=== PATIENT | male | born 1975 | race Caucasian/White ===

== ENCOUNTER 2017-07-27 13:49 | Emergency (ER) | payer MEDICARE, MEDICAID ==
--- NOTE | 2017-07-27 14:14 | UC ---
Throat Pain/Nasal Fer HPI - HPI Summary HPI Summary: Pt presents with fatigue, body aches, sinus pain/pressure/congestion, and dry cough for the last 3 days. He has been taking tylenol and mucinex with no relief. Denies fever, chills, sore throat, SOB, chest pain, abdominal pain, n/v/ d/c. - History of Current Complaint Chief Complaint: UCRespiratory Stated Complaint: CONGESTION Time Seen by Provider: 07/27/17 14:13 Hx Obtained From: Patient Onset/Duration: Gradual Onset Severity: Mild Pain Intensity: 3 Pain Scale Used: 0-10 Numeric - Allergies/Home Medications Allergies/Adverse Reactions: Allergies Allergy/AdvReac Type Severity Reaction Status Date / Time Penicillins Allergy Unknown Verified 07/27/17 14:07 Reaction Details Home Medications: Home Medications Albuterol HFA INHALER* [Ventolin HFA Inhaler*] 1 puff TID PRN 07/27/17 [History Confirmed 07/27/17] Aspirin EC TAB* [Ecotrin EC Low Dose 81 MG*] 1 tab DAILY 07/27/17 [History Confirmed 07/27/17] Atorvastatin* [Lipitor*] 80 mg PO DAILY 07/27/17 [History Confirmed 07/27/17] Gabapentin CAP(*) [Neurontin 300 CAP(*)] 300 mg PO QID 07/27/17 [History Confirmed 07/27/17] Iron 65 mg DAILY 07/27/17 [History Confirmed 07/27/17] Levothyroxine TAB* [Synthroid TAB*] 200 mcg PO DAILY 07/27/17 [History Confirmed 07/27/17] Omeprazole CAP* [Prilosec CAP* 20 MG] 1 tab DAILY 07/27/17 [History Confirmed ] PMH/Surg Hx/FS Hx/Imm Hx Endocrine History: Hypothyroidism Cardiovascular History: Cardiac Disease, Hypertension Respiratory History: Asthma Neurological History: CVA - Surgical History Surgical History: Yes Surgery Procedure, Year, and Place: cardiac stent 08/12/12. appy. L ear skin graft. gangrene of the scrotal area. T&A gastric bypass - Family History Known Family History: Positive: None, Hypertension, Diabetes - Social History Lives: With Family Alcohol Use: None Substance Use Type: None Smoking Status (MU): Former Smoker Type: Cigarettes Amount Used/How Often: 1/2 ppd Length of Time of Smoking/Using Tobacco: 36 yrs Have You Smoked in the Last Year: Yes When Did the Patient Quit Smoking/Using Tobacco: 2013 Household Exposure Type: Cigarettes - Immunization History Most Recent Influenza Vaccination: no Review of Systems Constitutional: Other - Body aches Skin: Negative Eyes: Negative ENT: Nasal Discharge, Sinus Congestion, Sinus Pain/Tenderness Respiratory: Cough Cardiovascular: Negative Gastrointestinal: Negative Neurovascular: Negative Musculoskeletal: Negative Neurological: Negative Psychological: Negative All Other Systems Reviewed And Are Negative: Yes Physical Exam - Summary Physical Exam Summary: GENERAL: Mildly ill appearing. NAD. SKIN: No rashes, sores, ulcers, masses, lesions. HEENT: Head: AT/NC Eyes: EOM intact. Conjunctiva clear without inflammation or discharge. Ears: Hearing grossly normal. TMs intact, no bulging, erythema, or edema. Nose: Nasal mucosa pink and moist. TTP maxillary and frontal sinus. Throat: Posterior oropharynx without exudates, erythema, or tonsillar enlargement. Uvula midline. NECK: Supple. Nontender. No lymphadenopathy. CHEST: CTAB. No r/r/w. No accessory muscle use. Breathing comfortably and in no distress. CV: Pulses intact. Brisk cap refill. NEURO: Alert. CN II-XII grossly intact. PSYCH: Age appropriate behavior. Triage Information Reviewed: Yes Throat Pain/Nasal Course/Dx - Course Course Of Treatment: POC flu negative. Sinusitis - Differential Dx/Diagnosis Provider Diagnoses: Sinusitis Discharge - Sign-Out/Discharge Documenting (check all that apply): Discharge - Discharge Plan Condition: Stable Disposition: HOME Prescriptions: Azithromycin TAB* [Zithromax TAB (Z-GOLD) 250 mg #6 tabs] 2 tab PO .TODAY, THEN 1 DAILY #1 gold Patient Education Materials: Sinusitis (ED) Forms: *Work Release Referrals: Ole Daly DO [Primary Care Provider] - Additional Instructions: If you develop a fever, shortness of breath, chest pain, new or worsening symptoms - please call your PCP or go to the ED. Your blood pressure was high at todays visit. Please see your primary provider within 4 weeks for recheck and re-evaluation. - Billing Disposition and Condition Condition: STABLE Disposition: HOME
[2017-07-27 14:15] VITALS: BP 144/88
== END 2017-07-27 14:48 | disposition home or self-care (01) ==
LOC: UCCORT 13:49
DX: J32.9 Chronic sinusitis, unspecified (principal); Z88.0 Allergy status to penicillin; E03.9 Hypothyroidism, unspecified; Z86.73 Personal history of transient ischemic attack (TIA), and cerebral infarction without residual deficits; Z87.891 Personal history of nicotine dependence
CPT/HCPCS: 87502; 99212; G0463

== ENCOUNTER 2017-09-30 17:30 | Emergency (ER) | payer MEDICARE, MEDICAID ==
[2017-09-30 18:30] VITALS: BP 143/98
[2017-09-30] MEDS ORDERED: Ketorolac INJ* 30 MG/ML 1 ML VIAL IM ONE (19:13)
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
== END 2017-09-30 19:43 | disposition home or self-care (01) ==
LOC: UCCORT 17:30
DX: M54.5 Low back pain (principal); M54.16 Radiculopathy, lumbar region
CPT/HCPCS: 96372; 99212; G0463; J1885

== ENCOUNTER 2017-12-07 19:50 | Emergency (ER) | payer MEDICARE, MEDICAID ==
[2017-12-07 20:02] VITALS: BP 133/96
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
== END 2017-12-07 20:38 | disposition home or self-care (01) ==
LOC: UCCORT 19:50
DX: R51 Headache (principal); F17.210 Nicotine dependence, cigarettes, uncomplicated; Z88.0 Allergy status to penicillin; R22.0 Localized swelling, mass and lump, head
CPT/HCPCS: 99212; G0463

== ENCOUNTER 2018-02-11 19:35 | Emergency (ER) | payer MEDICARE, MEDICAID ==
[2018-02-11 20:21] VITALS: BP 136/88
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
[2018-02-11] MEDS ORDERED: Albuterol 2.5 MG/3 ML NEB.SOL* (0.083%) INH ONE (20:53)
[2018-02-11] MEDS ORDERED: Ipratropium 0.5MG/2.5ML NEB* 0.5 MG/2.5 ML NEB.SOLN INH ONE (20:53)
[2018-02-11] MEDS ORDERED: DOXYcycline CAP(*) 100 MG PO ONE (21:27)
[2018-02-11] MEDS ORDERED: Albuterol HFA INHALER* 8 gm MDI INH ONE (21:29)
[2018-02-11] MEDS ORDERED: predniSONE TAB* 20 MG PO ONE (21:29)
--- NOTE | 2018-02-12 08:08 | RAD ---
HISTORY: cough/right sided wheezing COMPARISONS: December 05, 2013 VIEWS: 4: Frontal dual-energy and lateral views of the chest. FINDINGS: CARDIOMEDIASTINAL SILHOUETTE: The cardiomediastinal silhouette is normal. ALEX: The alex are normal. PLEURA: The costophrenic angles are sharp. No pleural abnormalities are noted. LUNG PARENCHYMA: The lungs are clear. ABDOMEN: The upper abdomen is clear. There is no subphrenic gas. BONES AND SOFT TISSUES: No bone or soft tissue abnormalities are noted. OTHER: None. IMPRESSION: NO ACTIVE CARDIOPULMONARY DISEASE. R0
--- NOTE | 2018-02-12 08:19 | UC ---
- Progress Note Progress Note: Patient Name: RICHA CUI Medical Record#: [id number] Ordering Physician: Brayden Bonds MD Acct.#: [id number] : 1975 Age: 42 Sex: M Location: [facility] Exam Date: 02/11/182033 ADM Status: DEP ER Order Information: CHEST PA & LAT 2 VWS Accession Number: [id number] CPT: 60364 HISTORY: cough/right sided wheezing COMPARISONS: December 05, 2013 VIEWS: 4: Frontal dual-energy and lateral views of the chest. FINDINGS: CARDIOMEDIASTINAL SILHOUETTE: The cardiomediastinal silhouette is normal. JAMES: The james are normal. PLEURA: The costophrenic angles are sharp. No pleural abnormalities are noted. LUNG PARENCHYMA: The lungs are clear. ABDOMEN: The upper abdomen is clear. There is no subphrenic gas. BONES AND SOFT TISSUES: No bone or soft tissue abnormalities are noted. OTHER: None. IMPRESSION: NO ACTIVE CARDIOPULMONARY DISEASE. R0 <Electronically signed by Jeff Murphy MD in OV> 02/12/18804 Dictated By: Jeff Murphy MD Dictated Date/Time: 02/12/18804 Transcribed Date/Time: 02/12/18803 Copy to: CC:Brayden Bonds MD; Ole Daly DO Imaging [facility] Imaging [facility] [address] [address] ph ([phone]) ph ([phone]) ph ([phone]) This report is only to be considered final once signed by the Provider(s) as displayed in the "<Electronically Signed by >" field (s). Absence of a signature indicates the report is in a draft status and still needs to be finalized. In the event this document was created by someone other than the signing Provider, the individual initiating the document will be listed in the "Entered by:" or "Dictated by:" carroll. 1 of 1 Re-Evaluation - Re-Evaluation First Eval Re-Evaluation Time: 21:31 Change: Improved - better after neb, wheezes gone Discharge - Sign-Out/Discharge Documenting (check all that apply): Post-Discharge Follow Up All imaging exams completed and their final reports reviewed: Yes - Discharge Plan Condition: Stable Disposition: HOME Prescriptions: DOXYcycline CAP(*) [DOXYcycline 100MG CAP(*)] 100 mg PO BID #12 cap predniSONE [Deltasone 20 MG TAB] 40 mg PO DAILY #10 tab Patient Education Materials: Acute Bronchitis (ED) Forms: *Work Release Referrals: Ole Daly DO [Primary Care Provider] - 2 Days Additional Instructions: The official XR report is pending Don't take your iron the same time you take your doxy. Take at least 2 hours before or 2 hour after the doxy. TO ER FOR WORSENING SYMPTOMS OR CHEST PAIN OR HIGH FEVER SEE YOUR MD IN 2 DAYS - Billing Disposition and Condition Condition: STABLE Disposition: Home
== END 2018-02-11 21:48 | disposition home or self-care (01) ==
LOC: UCCORT 19:35
DX: J20.9 Acute bronchitis, unspecified (principal); J44.9 Chronic obstructive pulmonary disease, unspecified; E11.9 Type 2 diabetes mellitus without complications; I25.10 Atherosclerotic heart disease of native coronary artery without angina pectoris; K74.60 Unspecified cirrhosis of liver; F17.210 Nicotine dependence, cigarettes, uncomplicated; Z95.5 Presence of coronary angioplasty implant and graft; Z86.73 Personal history of transient ischemic attack (TIA), and cerebral infarction without residual deficits; Z98.84 Bariatric surgery status; Z88.0 Allergy status to penicillin
CPT/HCPCS: 71046; 99213; A9270-GY; G0463; J7512

== ENCOUNTER 2018-06-21 07:28 | Emergency (ER) | payer MEDICARE, MEDICAID ==
--- OUTSIDE RECORDS SUMMARY | 2018-06-21 08:02 | XMS REPORT | Continuity of Care Document ---
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 Primary Care Physician Unavailable Payers Date Identification Numbers Payment Provider Subscriber Policy Number: [id number] [employer] [place] Anil Carrillo PayID: [id number] 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 ETOH Use Rarely consumes alcohol Tobacco Use Start: Unknown Patient is a current smoker, smokes every day Recreational Drug Use Denies Drug Use Smoking Status Reviewed: 05/29/18 Patient is a current smoker, smokes every day Allergies, Adverse Reactions, Alerts Date Description Reaction Status Severity Comments 12/25/2017 Penicillin Active Medications Medication Date Status Form Strength Qnty SIG Indications Ordering Provider Oxycodone HCL 05/01/ Active Tablets 5mg 90tabs si by Peg Ochoa DO, every 8 MPH hours as directed chronic pain patient Gabapentin / Active Capsules 300mg si by Unknown 0000 mouth four times a day as directed Diclofenac / Active Tablets DR 75mg one by Unknown Sodium 0000 mouth twice daily Levothyroxine / Active Tablets 300mcg 1 by mouth Unknown Sodium 0000 every morning Aspirin Ec / Active Tablets DR 81mg 1 by mouth Unknown 0000 every day Duloxetine HCL / Active Caps DR 60mg 1 by mouth Unknown 0000 Part every day [facility] Vitamin / Active Tablets 1000mcg 1 by mouth Unknown B-12 0000 daily Omeprazole / Active Capsules 40mg 1 by mouth Unknown 0000 DR twice daily Calcium 600+D / Active Tablets 1 by mouth Unknown 0000 twice a day Montelukast / Active Tablets 10mg 1 by mouth Unknown Sodium 0000 daily Multi Vitamin / Active Tablets 1 by mouth Unknown Daily 0000 daily Vitamin B-2 / Active Tablets 100mg 1 by mouth Unknown 0000 daily Magnesium Oxide / Active Tablets 250mg 1 by mouth Unknown -MG Supplement 0000 daily Oxycodone HCL 12/25/ Hx Tablets 5mg 60tabs si by Don, 2018 - mouth Basil, DO, 05/01/ every 12 MPH 2019 hours as directed chronic pain patient Duloxetine HCL / Hx Caps DR 30mg 1 cap by Unknown 0000 - Part mouth once 05/01/ daily 2019 Nortriptyline / Hx Capsules 25mg si by Unknown HCL 0000 - mouth 05/01/ every at 2019 night Immunizations Description No Information Available Vital Signs Date Vital Result Comment 05/29/2018 10:07am BP Systolic 132 mmHg BP Diastolic 84 mmHg Heart Rate 80 /min Respiratory Rate 20 /min Height 69 inches 5'9" Weight 240.00 lb Pain Level 8 Pain at this time. Pain Level With Medicine 8 on average with meds Pain Level Without Medicine 10 01/22 without meds BMI (Body Mass Index) 35.4 kg/m2 05/01/2018 9:44am BP Systolic 130 mmHg BP Diastolic 80 mmHg Heart Rate 84 /min Respiratory Rate 20 /min Height 69 inches 5'9" Weight 243.00 lb Pain Level 8 Pain at this time. Pain Level With Medicine 7 on average with meds Pain Level Without Medicine 10 01/22 without meds BMI (Body Mass Index) 35.9 kg/m2 03/28/2018 11:23am BP Systolic 140 mmHg BP Diastolic 86 mmHg Heart Rate 82 /min Respiratory Rate 20 /min Height 69 inches 5'9" Weight 243.00 lb Pain Level 1 Pain at this time. Pain Level With Medicine 1 on average with meds Pain Level Without Medicine 10 01/22 without meds BMI (Body Mass Index) 35.9 kg/m2 02/26/2018 10:20am BP Systolic 148 mmHg BP Diastolic 86 mmHg Heart Rate 88 /min Respiratory Rate 20 /min Height 69 inches 5'9" Weight 243.00 lb Pain Level 9 Pain at this time. Pain Level With Medicine 8 on average with meds Pain Level Without Medicine 10 01/22 without meds BMI (Body Mass Index) 35.9 kg/m2 01/28/2018 9:09am BP Systolic 140 mmHg BP Diastolic 86 mmHg Heart Rate 88 /min Respiratory Rate 20 /min Height 69 inches 5'9" Weight 243.00 lb Pain Level 5 Pain at this time. Pain Level With Medicine 4 on average with meds Pain Level Without Medicine 10 01/22 without meds BMI (Body Mass Index) 35.9 kg/m2 01/09/2018 10:17am BP Systolic 138 mmHg BP Diastolic 88 mmHg Heart Rate 86 /min Respiratory Rate 20 /min Height 69 inches 5'9" Weight 246.00 lb Pain Level 7 Pain at this time. Pain Level With Medicine 6 on average with meds Pain Level Without Medicine 10 01/22 without meds BMI (Body Mass Index) 36.3 kg/m2 12/25/2017 10:13am BP Systolic 136 mmHg BP Diastolic 86 mmHg Heart Rate 84 /min Respiratory Rate 20 /min Height 69 inches 5'9" Weight 246.00 lb Pain Level 7 Pain at this time. Pain Level Without Medicine 10 01/22 without meds BMI (Body Mass Index) 36.3 kg/m2 Results Description No Information Available Procedures Description No Information Available Encounters Type Date Location Provider Dx Diagnosis Office Visit 05/01/2018 Main Office as Of Basil Ochoa DO G89.21 Chronic pain due 9:45a 05/16/13 MPH to trauma M54.5 Low back pain M54.16 Radiculopathy, lumbar region Z79.891 snf (current) use of opiate analgesic Office Visit 03/28/2018 11:15a Main Office as Basil Ochoa G89.21 Chronic pain due Of 05/16/13 DO, MPH to trauma M54.16 Radiculopathy, lumbar region Z79.891 snf (current) use of opiate analgesic Office Visit 02/26/2018 10:15a Main Office as Basil Ochoa G89.21 Chronic pain due Of 05/16/13 DO, MPH to trauma M54.16 Radiculopathy, lumbar region Z79.891 snf (current) use of opiate analgesic Office Visit 01/28/2018 9:30a Main Office as Basil Ochoa G89.21 Chronic pain due Of 05/16/13 DO, MPH to trauma M54.16 Radiculopathy, lumbar region M54.5 Low back pain Z79.891 snf (current) use of opiate analgesic Office Visit 01/09/2018 10:30a Main Office as Basil Ochoa G89.21 Chronic pain due Of 05/16/13 DO, MPH to trauma M54.5 Low back pain M54.16 Radiculopathy, lumbar region Z79.891 snf (current) use of opiate analgesic Office Visit 12/25/2017 9:00a Main Office as Basil Ochoa G89.21 Chronic pain due Of 05/16/13 DO, MPH to trauma M54.5 Low back pain M54.16 Radiculopathy, lumbar region F17.210 Nicotine dependence, cigarettes, uncomplicated Z13.89 Encounter for screening for other disorder Z71.89 Other specified counseling F31.9 Bipolar disorder, unspecified 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 Symptoms and complaints discussed and reviewed today. No significant changes in physical findings. Continue current medical pain management.M54.5 Low back painComments:Chronic. Symptoms and complaints discussed and reviewed today.No changes in physical findings. Patient is stable and comfortable when current medical therapy is rendered.M54.16 Radiculopathy, lumbar regionComments:Chronic. Symptoms and complaints discussed and reviewed today. No changes in physical findings; patient is stable on current medical therapy.F31.9 Bipolar disorder, unspecifiedComments:Followed by psychiatrist and counsellor. Reassurance and counseling provided. Will follow in terms of pain management. Started on Lamotrigine by BRYON Hadley which seems to be doinghim well. He has been counseled to maintain appropriate labs.I10 Essential (primary ) hypertensionComments:Chronic. Symptoms and complaints discussed and reviewed today. No significant changes in physical findings or treatments. Continue current medical pain management. Followed by PCP and cardiology. Will follow in terms of pain management and associated medications. No changes in treatment reported at this time. Activity as tolerated. Will follow and refer when appropriate. Diet and exercise discussed.K21.9 Gastro-esophageal reflux disease without esophagitisComments:Following as pertains to chronic pain medications particularly NSAIDS and Tylenol as well as any meds that effect the GI tract.Z79.891 morgue librarian (current) use of opiate analgesicNew Labs:Urine Drug Screen, Ordered: 05/29/18Comments:Urine drug screen sample taken today to monitor opiate use and to monitor use of illicit substances.Will discuss results at next appointment.The following tests were ordered:6 AM, AMPH, HANY, UMANG, BUP, CARIS, COCM, COT, ETG, FENT, MCSHSG, OPI, OXY, PCP, TAPEN, XTSY, ZOLP. ~I_A urine drug test (UDT) was ordered for this patient and collected on site today. Creatinine has been ordered as well for specimen validity, not for kidney function. Preliminary UDT results are not final and should not be used to determine patient care or plan of treatment. Initially a qualitative immunoassay screen will be done. Any inconsistent or positive findings will be further tested with a more comprehensive quantitative confirmation LCMS study. It is part of the treatment process of prescribing controlled substances and is considered standard of care.~i_R53.83 Other fatigueComments:Symptoms and complaints discussed and reviewed today. No significant changes in physical findings. Continue current medical pain management. B12 injection administered after patient evaluated. 1ml IM for fatigue. (See Consent for injection-B12 document for lot number and expiration date.)G90.3 Multi-system degeneration of the autonomic nervous systemNew Orders: Sudomotor Test, Ordered: 05/29/18Comments:Sudomotor testing ordered to determine the effect, if any, of chronic illness and pain on small nerve fibers and/or autonomic nervous system function. Future testing will help to monitor the effects ofchronic illness,pain and subsequent treatments on the autonomic nervous system. If proper diagnosis and monitoring of ANS and/or small pain fiber problems is not appropriately addressed, adequate pain management may not be achieved.Z13.31 Encounter for screening for depressionComments:PHQ-9 Depression Screen administered today, results were Positive at this time. Followed by PCP. Will follow as pertains to their pain. Patient seems to be stable today. Reassurance and counseling. Patient seems to be stable today.AllComments:All above symptoms and complaints discussed as well as diagnoses reviewed.Continue trial of opioid pain management - note changes below ; injection therapy, osteopathic manipulation (OMT), PT / modalities, and consults as needed to manage chronic pain.Side effects discussed; anticipatory guidance given. Patient clearly understands and agrees with all medical treatments and suggestions. All medicines prescribed are adequate and appropriate for this patient's complaint of pain, medical history, physical, and personal goals.Goals of Treatment are to provide adequate and appropriate multidisciplinary medical pain management to increase/ maintain patient's quality of life and functionality while maintaining satisfactory side effect profile and minimizing field technical assistant end-organ damage. Activity as toleratedContinue with PCP
== END 2018-06-21 08:00 | disposition left against medical advice (07) ==
LOC: UCCORT 07:28
DX: Z53.21 Procedure and treatment not carried out due to patient leaving prior to being seen by health care provider (principal)

== ENCOUNTER 2018-09-07 21:18 | Emergency (ER) | payer MEDICARE, MEDICAID ==
--- OUTSIDE RECORDS SUMMARY | 2018-09-07 21:34 | XMS REPORT | Continuity of Care Document ---
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 Primary Care Physician Unavailable Payers Date Identification Numbers Payment Provider Subscriber Policy Number: [id number] [employer] Anil Carrillo PayID: [id number] [address] [address] [place] [address] Policy Number: [id number] [facility] Anil Carrillo PayID: [id number] [address] [place] [address] Policy Number: [id number] Medicaid [place] Anil Carrillo PayID: [id number] [address] [place] [address] Expires: 2018 Policy Number: [id number] [place] Anil Carrillo PayID: [id number] 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 ETOH Use Rarely consumes alcohol Tobacco Use Start: Unknown Patient is a current smoker, smokes every day Recreational Drug Use Denies Drug Use Smoking Status Reviewed: 08/15/18 Patient is a current smoker, smokes every day Allergies, Adverse Reactions, Alerts Active Allergies Reaction Severity Comments Date Penicillin 12/25/2017 Medications Active Medications SIG Qnty Indications Ordering Date Provider Oxycodone HCL si by mouth 90tabs Basil Ochoa, 05/01/2018 5mg Tablets every 8 hours as DO, MPH directed chronic pain patient Ferrous Fumarate Unknown 324(106Fe) mg Tablets Magnesium Oxide -MG 1 by mouth daily Unknown Supplement 250mg Tablets Vitamin B-2 1 by mouth daily Unknown 100mg Tablets Multi Vitamin Daily 1 by mouth daily Unknown Tablets Montelukast Sodium 1 by mouth daily Unknown 10mg Tablets Calcium 600+D 1 by mouth twice Unknown Tablets a day Omeprazole 1 by mouth twice Unknown 40mg Capsules daily DR WU Vitamin B-12 1 by mouth daily Unknown 1000mcg Tablets Duloxetine HCL 1 by mouth every Unknown 60mg Caps day DR Clemons Aspirin Ec 1 by mouth every Unknown 81mg Tablets day Levothyroxine Sodium 1 by mouth every Unknown morning 300mcg Tablets Diclofenac Sodium one by mouth Unknown 75mg twice daily Tablets Gabapentin si by mouth Unknown 300mg Capsules four times a day as directed History Medications Oxycodone HCL si by mouth 60tabs Basil Ochoa, 12/25/2017 - 5mg Tablets every 12 hours as DO, MPH 05/01/2018 directed chronic pain patient Duloxetine HCL 1 cap by mouth Unknown - 30mg Caps DR once daily 05/01/2018 Part Nortriptyline HCL si by mouth Unknown - 25mg every at night 05/01/2018 Capsules Immunizations Description No Information Available Vital Signs Date Vital Result Comment 08/15/2018 10:30am BP Systolic 148 mmHg BP Diastolic 78 mmHg Heart Rate 84 /min Respiratory Rate 18 /min Height 69 inches 5'9" Weight 238.00 lb Pain Level 9 Pain at this time. Pain Level With Medicine 8 on average with meds Pain Level Without Medicine 9 01/22 without meds BMI (Body Mass Index) 35.1 kg/m2 06/30/2018 10:04am BP Systolic 148 mmHg BP Diastolic 86 mmHg Heart Rate 82 /min Respiratory Rate 20 /min Height 69 inches 5'9" Weight 238.00 lb Pain Level 7 Pain at this time. Pain Level With Medicine 7 on average with meds Pain Level Without Medicine 10 01/22 without meds BMI (Body Mass Index) 35.1 kg/m2 05/29/2018 10:07am BP Systolic 132 mmHg BP [...] kg/m2 Results Description No Information Available Procedures Date Code Description Status 05/29/2018 81294 Therapeutic, Prophylactic Or Diagnostic Injection Subq/Im Completed 05/29/2018 41776 Brief Emotional/Behav Assessment W/ Scoring Doc Per Completed Standard Inst 05/29/2018 12797 Test Autonomic Nervous System, Sudomotor Completed 05/29/2018 04534 Test Autonomic Nervous System, Cardiovagal Innervation Completed Encounters Type Date Location Provider Dx Diagnosis Office Visit 06/30/2018 Main Office as Of Basil Ochoa DO, G89.21 Chronic pain due 10:15a 05/16/13 MPH to trauma M54.5 Low back pain M54.16 Radiculopathy, lumbar region Z79.891 MCC (current) use of opiate analgesic G90.3 Multi-system degeneration of the autonomic nervous system Office Visit 05/29/2018 9:45a Main Office as Basil Ochoa G89.21 Chronic pain due Of 05/16/13 DO, MPH to trauma M54.5 Low back pain M54.16 Radiculopathy, lumbar region F31.9 Bipolar disorder, unspecified I10 Essential (primary) hypertension K21.9 Gastro-esophageal reflux disease without esophagitis 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 R53.83 Other fatigue G90.3 Multi-system degeneration of the autonomic nervous system Z13.31 Encounter for screening for depression Office Visit 05/01/2018 9:45a Main Office as Basil Ochoa G89.21 Chronic pain due Of 05/16/13 DO, MPH to trauma M54.5 Low back pain M54.16 Radiculopathy, lumbar region 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 Office Visit 03/28/2018 11:15a Main Office as Basil Ochoa G89.21 Chronic pain due Of 05/16/13 DO, MPH to trauma M54.16 Radiculopathy, lumbar region 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 Office Visit 02/26/2018 10:15a Main Office as Basil Ochoa G89.21 Chronic pain due Of 05/16/13 DO, MPH to trauma M54.16 Radiculopathy, lumbar region 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 Office Visit 01/28/2018 9:30a Main Office as Basil Ochoa G89.21 Chronic pain due Of 05/16/13 DO, MPH to trauma M54.16 Radiculopathy, lumbar region M54.5 Low back pain Z79.891 MCC (current) use of opiate analgesic Office Visit 01/09/2018 10:30a Main Office as Basil Ochoa G89.21 Chronic pain due Of 05/16/13 DO, MPH to trauma M54.5 Low back pain M54.16 Radiculopathy, lumbar region 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 Office Visit 12/25/2017 9:00a Main Office as Basil Ochoa G89.21 Chronic pain due Of 05/16/13 DO, MPH to trauma M54.5 Low back pain M54.16 Radiculopathy, lumbar region F17.210 Nicotine dependence, cigarettes, uncomplicated Z13.89 Encounter for screening for other disorder Z71.89 Other specified counseling F31.9 Bipolar disorder, unspecified Z79.891 MCC (current) use of opiate analgesic Plan of Treatment Future Appointment(s):09/12/2018 11:30 am - Basil Ochoa DO MPH at Main Office as Of 05/16/1404 - Basil Ochoa DO, MPHG89.21 Chronic pain due to traumaNew Orders:LSO Brace Back, Ordered: 08/15/18Comments:Chronic. Symptoms and complaints discussed and reviewed today. No significant changes in physical findings. Continue current medical pain management.M54.5 Low back painNew Orders:LSO Brace Back, Ordered: 08/15/18Comments:Chronic. Symptoms and complaints discussed and reviewed today.No changes in physical findings. Patient is stable and comfortable when current medical therapy is rendered.M54.16 Radiculopathy, lumbar regionNew Orders:LSO Brace Back, Ordered: 08/15/18Comments:Chronic. Symptoms and complaints discussed and reviewed today. No changes in physical findings; patient is stable on current medical therapy.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New Labs:Urine Drug Screen, Ordered: 08/15/18Comments:Urine drug screen sample taken today to monitor opiate use and to monitor use of illicit substances.Will discuss results at next appointment.The following tests were ordered:6 AM, AMPH, HANY, UMANG, BUP, CARIS, COCM, COT, ETG, FENT, MCSHSG, OPI, OXY, PCP, TAPEN, XTSY, ZOLP. A urine drug test (UDT) was ordered for [...] controlled substances and is considered standard of care.AllComments:All above symptoms and complaints discussed as well as diagnoses reviewed.Continue trial of opioid pain management - note changes below; injection therapy, osteopathic manipulation ( OMT), PT / modalities, and consults as needed [...] maintaining satisfactory side effect profile and minimizing director long term care end-organ damage. Activity as toleratedContinue with PCP
[2018-09-08] MEDS ORDERED: oxyCODONE TAB* 5 MG TAB PO ONE (00:44)
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
[2018-09-08] MEDS ORDERED: Acetaminophen TAB* 325 MG PO ONE (00:54)
[2018-09-08 01:04] VITALS: BP 144/66
--- NOTE | 2018-09-09 08:36 | PN ---
Progress Note - Progress Note Date of Service: 09/05/18 Note: Called patient at 8:35 AM to make aware of overnight radiology read of his acute to subacute to chronic appearing midfoot fracture Patient states he has an orthopedic physician that he sees in [place] He is calling them today to make an appointment
== END 2018-09-08 01:03 | disposition home or self-care (01) ==
LOC: ED 21:18
DX: M79.671 Pain in right foot (principal); Z87.81 Personal history of (healed) traumatic fracture; I73.9 Peripheral vascular disease, unspecified; J44.9 Chronic obstructive pulmonary disease, unspecified; Z95.5 Presence of coronary angioplasty implant and graft; F17.210 Nicotine dependence, cigarettes, uncomplicated
CPT/HCPCS: 99282; A9270-GY